=== PATIENT | female | born 1975 | race Two or more races ===

== ENCOUNTER 2019-08-21 18:31 | Inpatient (IN) | payer BC, OTHER ==
[~2019-08-21] VITALS: Ht 152.4 cm; Wt 102.4 kg
[2019-08-21] MEDS ORDERED: SODIUM CHLORIDE 0.9% 500 ML IVB ONE (20:35)
[2019-08-21] MEDS ORDERED: PANTOPRAZOLE 40 MG/10 ML VIAL INJ IV STA (20:35)
[2019-08-21] MEDS ORDERED: ONDANSETRON HCL 4 MG/2 ML VIAL IV ONE (20:45)
[2019-08-21 20:46] LABS: Urine Bacteria FEW /hpf (None Seen); Urine Blood Negative /uL (Negative); Urine Mucus FEW (None Seen); Urine Specific Gravity 1.021 (1.001-1.035); Urine WBC 2 /hpf (0 - 5)
[2019-08-21 22:17] LABS: Basophils # (auto) 0.1 uL; Eosinophils # (auto) 0 uL; Neutrophils # (auto) 6.1 uL
[2019-08-21 22:19] LABS: Basophils % (auto) 0.7 % (0.0-2.0); Eosinophils % (auto) 0.2 % (0.0-7.0); Hematocrit 25.7 % (36.0-46.0); Hemoglobin 8.2 g/dL (12.2-16.2); Lymphocytes # (auto) 1.7 uL; Lymphocytes % (auto) 20.9 % (10.0-50.0); Mean Corpuscular Hemoglobin 24.2 pg (28.0-32.0); Mean Corpuscular Hgb Conc. 31.9 g/dL (32.0-36.0); Mean Corpuscular Volume 75.8 fL (80.0-100.0); Monocytes # (auto) 0.3 uL; Monocytes % (auto) 4.2 % (0.0-12.0); Platelet Count (auto) 432 10^3/uL (140-450); Red Blood Cells 3.39 10^6/uL (4.0-5.20); Red Cell Distribution Width 18.3 % (11.8-14.3); White Blood Cell 8.3 10^3/uL (4.4-10.8)
[2019-08-21 22:40] LABS: Calcium 7.4 mg/dL (8.5-10.1); Potassium 3.6 mmol/L (3.5-5.1)
[2019-08-21 22:44] LABS: BUN/Creatinine Ratio 16.2; Bilirubin, Total 0.4 mg/dL (0.2-1.0); Total Protein 8.6 g/dL (6.4-8.2)
[2019-08-22] MEDS ORDERED: ACETAMINOPHEN 325 MG TAB PO PRN (00:30)
[2019-08-22] MEDS ORDERED: TEMAZEPAM 15 MG CAP PO PRN (00:30)
[2019-08-22] MEDS ORDERED: DEXTROSE (50%) 50ML SYRG IV PRN (00:45)
[2019-08-22 01:13] LABS: % Iron Saturation 5.6 % (15-50)
[2019-08-22] MEDS: HYDROcodone-ACET 5/325MG TAB PO PRN ×5 (01:17→21:31)
[2019-08-22] MEDS: InsuLIN REG 1unit/0.01ml Soln (100units/ml) SC SCH ×4 (06:00→23:51)
[2019-08-22] MEDS: ACCU-CHEK COMFORT CURVE STRIP VI SCH ×4 (06:25→23:49)
[2019-08-22] MEDS: LEVOTHYROXINE SODIUM 50 MCG TAB PO SCH (06:35)
[2019-08-22] MEDS: PANTOPRAZOLE 40 MG TAB PO SCH (09:07)
[2019-08-22] MEDS: ENALAPRIL MALEATE 2.5 MG TAB PO SCH (09:07)
[2019-08-22] MEDS ORDERED: FAMOTIDINE 20 MG TAB PO SCH (10:00)
[2019-08-22] MEDS: SUCRALFATE 1 GM/10 ML ORAL SUSP PO SCH ×3 (11:51→21:31)
[2019-08-22 13:00] VITALS: BP 128/55
--- NOTE | 2019-08-22 13:06 | NUR ---
Telemetry admit from ER TOM PHILLIPS admitted to Telemetry unit after SBAR received. Patient oriented to ARON LORD RN primary RN, room 284, bed A, and unit policies regarding patient care and visiting hours. Patient now on continuous telemetry monitoring, tele box # . Patient weighed by bedscale and encouraged to call if they need something. All questions and concerns addressed, patient verbalized understanding.
[2019-08-22] MEDS: ONDANSETRON HCL 4 MG/2 ML VIAL IV PRN (16:06)
[2019-08-22 17:00] VITALS: BP 127/76
--- NOTE | 2019-08-22 19:35 | NUR ---
Opening Shift Note Assumed care of patient, awake and alert. No S/S of distress/SOB or pain. Safety measures in place side rails x2 up, bed in lowest position, and call light within reach. Instructed on POC and to call for assist PRN, will continue to monitor for changes Q1hr and PRN.
[2019-08-22 22:00] VITALS: BP 114/70
[2019-08-23 05:21] VITALS: BP 116/71
[2019-08-23] MEDS: InsuLIN REG 1unit/0.01ml Soln (100units/ml) SC SCH ×3 (06:00→17:29)
[2019-08-23 06:15] LABS: Basophils # (auto) 0 uL; Eosinophils # (auto) 0 uL; Hematocrit 24.8 % (36.0-46.0); Lymphocytes # (auto) 1.6 uL; Monocytes # (auto) 0.4 uL
[2019-08-23 06:17] LABS: Basophils % (auto) 0.3 % (0.0-2.0); Eosinophils % (auto) 0.3 % (0.0-7.0); Mean Corpuscular Hemoglobin 25.2 pg (28.0-32.0); Mean Corpuscular Hgb Conc. 32.1 g/dL (32.0-36.0); Mean Corpuscular Volume 78.6 fL (80.0-100.0); Monocytes % (auto) 5.4 % (0.0-12.0); Platelet Count (auto) 378 10^3/uL (140-450); Red Blood Cells 3.15 10^6/uL (4.0-5.20); Red Cell Distribution Width 17.7 % (11.8-14.3); White Blood Cell 8.1 10^3/uL (4.4-10.8)
[2019-08-23] MEDS: ACCU-CHEK COMFORT CURVE STRIP VI SCH ×3 (06:17→17:30)
[2019-08-23 06:31] LABS: BUN/Creatinine Ratio 15.2; Potassium 3.2 mmol/L (3.5-5.1)
[2019-08-23] MEDS: SUCRALFATE 1 GM/10 ML ORAL SUSP PO SCH ×4 (06:35→21:03)
[2019-08-23] MEDS: LEVOTHYROXINE SODIUM 50 MCG TAB PO SCH (06:35)
[2019-08-23 08:00] VITALS: BP 121/78
[2019-08-23 09:00] VITALS: BP 121/78
[2019-08-23] MEDS: PANTOPRAZOLE 40 MG TAB PO SCH (09:57)
[2019-08-23] MEDS: ENALAPRIL MALEATE 2.5 MG TAB PO SCH (09:57)
[2019-08-23] MEDS ORDERED: IRON SUCROSE COMPLEX 200 MG in SODIUM CHL 0.9% 100 ML IV SCH (12:00)
[2019-08-23 13:00] VITALS: BP 116/78
[2019-08-23] MEDS: SODIUM FERR GLUC 62.5MG/5ML 125 MG in SODIUM CHL 0.9% 100 ML IV SCH (13:51)
[2019-08-23 17:00] VITALS: BP 132/77
[2019-08-23] MEDS: ONDANSETRON HCL 4 MG/2 ML VIAL IV PRN (17:30)
--- NOTE | 2019-08-23 19:26 | NUR ---
Opening Shift Note Assumed care of patient, awake and alert. No S/S of distress/SOB or pain. Instructed on POC and to call for assist PRN, will continue to monitor for changes Q1hr and PRN. Side rails up x2. Bed locked in lowest position. Call light within reach.
[2019-08-23 22:00] VITALS: BP 102/62
[2019-08-24] MEDS: ACCU-CHEK COMFORT CURVE STRIP VI SCH ×3 (00:26→12:21)
[2019-08-24 05:00] VITALS: BP 100/64
[2019-08-24] MEDS: InsuLIN REG 1unit/0.01ml Soln (100units/ml) SC SCH ×3 (06:00→12:00)
[2019-08-24] MEDS: SUCRALFATE 1 GM/10 ML ORAL SUSP PO SCH ×2 (06:33→12:21)
[2019-08-24] MEDS: LEVOTHYROXINE SODIUM 50 MCG TAB PO SCH (06:33)
[2019-08-24 06:50] LABS: Basophils # (auto) 0 uL; Eosinophils # (auto) 0 uL; Eosinophils % (auto) 0.7 % (0.0-7.0); Hemoglobin 8.1 g/dL (12.2-16.2); Lymphocytes % (auto) 24.9 % (10.0-50.0); Monocytes # (auto) 0.5 uL; Neutrophils # (auto) 4.7 uL
[2019-08-24 06:54] LABS: Basophils % (auto) 0.6 % (0.0-2.0); Hematocrit 24.5 % (36.0-46.0); Lymphocytes # (auto) 1.7 uL; Mean Corpuscular Hemoglobin 25.4 pg (28.0-32.0); Mean Corpuscular Hgb Conc. 33.3 g/dL (32.0-36.0); Mean Corpuscular Volume 76.3 fL (80.0-100.0); Monocytes % (auto) 6.5 % (0.0-12.0); Neutrophils % (auto) 67.3 % (37.0-80.0); Platelet Count (auto) 376 10^3/uL (140-450); Red Cell Distribution Width 17.5 % (11.8-14.3)
--- NOTE | 2019-08-24 07:00 | NUR ---
OPENING SHIFT NOTE ASSUMED CARE OF THE PATIENT FROM THE VEHICLE W[employer]OW TINTER RN. THE PATIENT IS A&Ox4, NO SIGNS OR SYMPTOMS OF DISTRESS. THE PATIENT'S RESPIRATIONS ARE EVEN AND UNLABORED. EDUCATED THE PATIENT ON POC AND PATIENT VERBALIZED UNDERSTANDING. THE PATIENT'S CALL LIGHT IS WITHIN REACH AND BED IS IN THE LOWEST, LOCKED POSITION. WILL ROUND HOURLY AND CONTINUE TO MONITOR.
[2019-08-24 07:01] LABS: Calcium 7.3 mg/dL (8.5-10.1)
[2019-08-24 07:07] LABS: Albumin 3.4 g/dL (3.4-5.0); BUN/Creatinine Ratio 6.8; Bilirubin, Total 0.3 mg/dL (0.2-1.0); Magnesium 2.2 mg/dL (1.6-2.6); Total Protein 7.7 g/dL (6.4-8.2)
--- NOTE | 2019-08-24 07:17 | NUR ---
Endorsed care to day shift RN.
[2019-08-24 08:00] VITALS: BP 124/80
[2019-08-24 09:00] VITALS: BP 124/80
[2019-08-24] MEDS: PANTOPRAZOLE 40 MG TAB PO SCH (09:35)
[2019-08-24] MEDS: ENALAPRIL MALEATE 2.5 MG TAB PO SCH (09:36)
[2019-08-24] MEDS: SODIUM FERR GLUC 62.5MG/5ML 125 MG in SODIUM CHL 0.9% 100 ML IV SCH (12:21)
--- NOTE | 2019-08-24 12:22 | NUR ---
IV removal IV at left AC DC'd with clean sterile technique, catheter fully intact. Pressure dressing applied to site. Patient tolerated well.
--- NOTE | 2019-08-24 12:22 | NUR ---
IV insertion IV access obtained, via clean sterile technique by inserting 22 gauge catheter at left forearm after 2 attempts. IV secured properly. No trauma to site. Patient tolerated well.
[2019-08-24] MEDS ORDERED: POTASSIUM CHL 20 Meq TABLET PO ONE (12:45)
[2019-08-24] MEDS: ONDANSETRON HCL 4 MG/2 ML VIAL IV PRN (14:22)
--- NOTE | 2019-08-24 15:59 | NUR ---
PATIENT TOLERATED CONSISTENT CARB DIET. PATIENT OK TO DISCHARGE PER DR. NULL.
--- NOTE | 2019-08-24 16:47 | NUR ---
Discharge instructions given as ordered. Encourage to follow up with PMD as instructed. All questions and concerns addressed. Patient verbalized understanding. Medication reconciliation form completed and copy given to patient.IV removed with catheter intact, pressure dressing applied. Telemetry unit returned to ICU. Patient taken to vehicle via wheelchair with all personal belongings, accompanied by staff and family member. No distress noted at time of departure.
== END 2019-08-24 16:40 | disposition home or self-care (01) | DRG 392 ==
LOC: ER 18:34 → OVERFLOW 18:35 → WEST WING 08-22 13:20 → TELE-WESTW 08-22 23:29
PROVIDERS: ADMIT Nurse Practitioner; ATTEND Internal Medicine Nephrology
DX: K29.70 Gastritis, unspecified, without bleeding (principal); Z68.41 Body mass index [BMI] 40.0-44.9, adult; I31.3 Pericardial effusion (noninflammatory); I10 Essential (primary) hypertension; E66.9 Obesity, unspecified; E11.9 Type 2 diabetes mellitus without complications; R16.0 Hepatomegaly, not elsewhere classified; E87.6 Hypokalemia; D50.9 Iron deficiency anemia, unspecified; Z82.49 Family history of ischemic heart disease and other diseases of the circulatory system
CPT/HCPCS: 36415; 71045; 74176; 80048; 80053; 81001; 82378; 82962; 83540; 83550; 83690; 83735; 83880; 84100; 84484; 85025; 86225; 86235; 86304; 93005; 93306; 96361; 96374; 96375; C9113; G0378; J1815; J2405